=== PATIENT | female | born 1995 | race Caucasian/White ===

== ENCOUNTER 2023-10-30 17:33 | Emergency (ER) | payer MEDICAID ==
[~2023-10-30] VITALS: Ht 160 cm; Wt 75.0 kg
[2023-10-30 17:57] VITALS: BP 116/55; PULSE 82; RESP 16; TEMP 98.2; O2SAT 99
== END 2023-10-30 18:41 | disposition home or self-care (01) ==
LOC: ER 17:33
DX: K04.7 Periapical abscess without sinus (principal)
CPT/HCPCS: 99281

== ENCOUNTER 2024-05-17 21:41 | Emergency (ER) | payer MEDICAID ==
[~2024-05-17] VITALS: Ht 157.5 cm; Wt 76.0 kg
[2024-05-17 22:09] VITALS: O2SAT 98
[2024-05-17] MEDS: IBUPROFEN 800MG TABLET PO ONE (23:30)
[2024-05-18 02:00] VITALS: BP 110/77; PULSE 90; RESP 20; TEMP 98.8
== END 2024-05-18 02:01 | disposition home or self-care (01) ==
LOC: ER 21:41
DX: J02.9 Acute pharyngitis, unspecified (principal); R05.9 Cough, unspecified; R07.89 Other chest pain; Z20.822 Contact with and (suspected) exposure to COVID-19
CPT/HCPCS: 71045; 87426; 87804; 99284

== ENCOUNTER 2024-09-21 16:28 | Emergency (ER) | payer MEDICAID, OTHER ==
[~2024-09-21] VITALS: Ht 154.9 cm; Wt 65.0 kg
[2024-09-21 16:38] VITALS: O2SAT 98
[2024-09-21 17:19] LABS: CLARITY URINE CLEAR (CLEAR); COLOR URINE YELLOW (YELLOW); GLUCOSE URINE NEGATIVE (NEGATIVE); KETONES URINE NEGATIVE (NEGATIVE); LEUKOCYTE ESTERASE URINE NEGATIVE (NEGATIVE); NITRITE URINE NEGATIVE (NEGATIVE); OCCULT BLOOD URINE NEGATIVE (NEGATIVE); PROTEIN URINE NEGATIVE (NEGATIVE); SPECIFIC GRAVITY URINE 1.018 (1.005-1.030); UROBILINOGEN URINE 0.2 E.U./dL (0.2-1.0)
[2024-09-21 17:32] LABS: CHLORIDE 103 mEq/L (98-107); POTASSIUM 3.9 mEq/L (3.5-5.1); SODIUM 138 mEq/L (136-145)
[2024-09-21 17:34] LABS: CALCIUM 9.8 mg/dL (8.7-10.4); CARBON DIOXIDE 27 mEq/L (21-32)
[2024-09-21 17:36] LABS: BASOPHILS % 0.4 % (0.0-2.0); EOSINOPHILS % 1.4 % (0.0-5.0); HEMATOCRIT. 35.9 % (36.0-48.0); HEMOGLOBIN. 11.5 g/dL (12.0-16.0); LYMPHOCYTES % 19.1 % (20.0-50.0); MEAN CORPUSCULAR HEMOGLOBIN 26.1 pg (28.0-32.0); MEAN CORPUSCULAR VOLUME 81.5 fL (81.0-99.0); MEAN PLATELET VOLUME 9.5 fl (7.4-10.4); MONOCYTES % 5.3 % (2.0-8.0); NEUTROPHILS % 73.8 % (40.0-76.0); PLATELET 311 x1000/uL (130-400); RED CELL DISTRIBUTION WIDTH 15.4 % (11.6-14.6); WHITE BLOOD COUNT 14.8 x1000/uL (4.5-11.0)
[2024-09-21 17:39] LABS: CREATININE 0.7 mg/dL (0.6-1.0); GLUCOSE 92 mg/dL (70-105)
[2024-09-21 17:40] LABS: UREA NITROGEN BLOOD 13 mg/dL (9-23)
[2024-09-21 17:41] LABS: ALANINE AMINOTRANSFERASE 18 IU/L (10-49); ALBUMIN 4.6 g/dL (3.2-4.8); ASPARTATE AMINOTRANSFERASE 21 IU/L (<34)
[2024-09-21 17:42] LABS: BILIRUBIN TOTAL 0.2 mg/dL (0.1-1.0); PROTEIN TOTAL 7.6 g/dL (6.0-8.3)
[2024-09-21 17:45] LABS: BILIRUBIN DIRECT < 0.1 mg/dL (<=3.0)
[2024-09-21] MEDS ORDERED: DOXY100C5 MT (21:53)
[2024-09-21] MEDS ORDERED: DOXYCYCLINE HYCLATE 100MG CAPSULE PO ONE (22:00)
[2024-09-21] MEDS ORDERED: CEFTRIAXONE SODIUM 500MG VIAL IM ONE (22:00)
[2024-09-21 22:09] VITALS: BP 118/69; PULSE 78; RESP 14; TEMP 36.72516; O2SAT 100
== END 2024-09-21 22:11 | disposition home or self-care (01) ==
LOC: ER 16:28
DX: N30.90 Cystitis, unspecified without hematuria (principal)
CPT/HCPCS: 36415; 80048; 80076; 81003; 85025; 86850; 86900; 87077; 87186; 99283